=== PATIENT | male | born 1975 | race Caucasian/White ===

== ENCOUNTER 2025-05-13 06:28 | Day surgery (SDC) | payer BC ==
[2025-05-12 10:51] VITALS: BMI 29.4
[2025-05-13] MEDS ORDERED: Lidocaine 1% PF 5 ML VIAL ONE (07:41)
[2025-05-13] MEDS ORDERED: PROPOFOL 20 ML ONE (07:44)
== END 2025-05-13 10:06 | disposition home or self-care (01) ==
LOC: SDC 06:28
PROVIDERS: ATTEND Internal Medicine Cardiovascular Disease
PROC: B24BZZ4 Ultrasonography of Heart with Aorta, Transesophageal (ICD-10-PCS; principal; 2025-05-13)
DX: N28.0 Ischemia and infarction of kidney (principal); I34.0 Nonrheumatic mitral (valve) insufficiency; E78.5 Hyperlipidemia, unspecified; Z98.890 Other specified postprocedural states; Z79.899 Other long term (current) drug therapy
CPT/HCPCS: 93005; 93010; 93312; J2704